=== PATIENT | male | born 1990 | race African-American/Black ===

== ENCOUNTER 2016-03-28 22:48 | Emergency (ER) | payer BC ==
[~2016-03-28] VITALS: Ht 170.2 cm; Wt 85.0 kg
[~2016-03-28 22:48] MED LIST: AMOXICILLIN500 M1 PO; CIPRO500 MG PO; CLEOCIN300 MG PO; NAPROSYN500 MG PO; NOHOMEMEDS; PERCOCET 5/31 TABLET PO; PHENERGAN25 MG PR; PROMETHAZINE HC25 M1 PO; TRAMADOL HCL50 MG PO
[2016-03-29] MEDS ORDERED: MOTRIN800 MG PO (00:50)
[2016-03-29] MEDS ORDERED: CLINDAMYCIN HC300 MG PO (00:50)
[2016-03-29] MEDS ORDERED: PERCOCET 5/31 TABLET PO (00:50)
[2016-03-29 01:09] VITALS: BP 125/68
== END 2016-03-29 01:12 | disposition home or self-care (01) ==
LOC: EME 22:48
PROC: 0H98XZZ Drainage of Buttock Skin, External Approach (ICD-10-PCS; principal; 2016-03-28)
DX: L02.31 Cutaneous abscess of buttock (principal)
CPT/HCPCS: 99281; 99284

== ENCOUNTER 2016-04-01 01:15 | Emergency (ER) | payer BC ==
[~2016-04-01 01:15] MED LIST changes: +CLINDAMYCIN HC300 MG PO; +MOTRIN800 MG PO
== END 2016-04-01 01:25 | disposition left against medical advice (07) ==
LOC: EME 01:15
DX: Z48.00 Encounter for change or removal of nonsurgical wound dressing (principal); Z53.21 Procedure and treatment not carried out due to patient leaving prior to being seen by health care provider

== ENCOUNTER 2016-07-16 01:06 | Emergency (ER) | payer SELFPAY ==
[~2016-07-16] VITALS: Ht 170.2 cm; Wt 91.3 kg
[2016-07-16] MEDS ORDERED: CLEOCIN300 MG PO (03:15)
[2016-07-16] MEDS ORDERED: NORCO 5/3251 TABLET PO (03:15)
[2016-07-16 04:15] VITALS: BP 133/81
== END 2016-07-16 05:15 | disposition home or self-care (01) ==
LOC: EME 01:06
DX: S02.5XXS Fracture of tooth (traumatic), sequela (principal); F17.200 Nicotine dependence, unspecified, uncomplicated
CPT/HCPCS: 99281; 99283